=== PATIENT | female | born 1935 ===

== ENCOUNTER 2017-08-22 12:15 | Inpatient (IN) | payer MEDICARE, MEDICAID ==
[2017-08-22] MEDS ORDERED: Albuterol-Ipratrop 3 mg / 0.5 (3 ml) UD INH STA ×2 (12:44→12:51)
[2017-08-22] MEDS ORDERED: Albuterol-Ipratrop 3 mg / 0.5 (3 ml) UD ONE ×2 (12:49→13:32)
[2017-08-22 12:54] LABS: BASO % 0.4 % (0.0-2.0); EOS # 0.1 K/uL (0.0-0.7); EOS % 0.8 % (0.0-4.0); HEMOGLOBIN 12.4 g/dL (11.0-16.0); LYMPH # 1.5 K/uL (1.0-4.3); LYMPH % 17.2 % (20.0-40.0); MEAN CORPUSCULAR HEMOGLOBIN 29.2 pg (27.0-31.0); MEAN CORPUSCULAR HGB CONC 34.3 g/dL (33.0-37.0); MEAN PLATELET VOLUME 8.1 fL (7.2-11.7); MONO # 0.8 K/uL (0.0-0.8); MONO % 9.2 % (0.0-10.0); NEUT # 6.2 K/uL (1.8-7.0); NEUT % 72.4 % (50.0-75.0); NRBC % 0.1 % (0.0-2.0); RBC 4.24 Mil/uL (3.80-5.20); RED CELL DISTRIBUTION WIDTH 13.5 % (11.5-14.5); WHITE BLOOD COUNT 8.5 K/uL (4.8-10.8)
[2017-08-22 13:01] LABS: INR 2.3
[2017-08-22 13:02] LABS: PROTHROMBIN TIME 25.2 SECONDS (9.7-12.2)
--- NOTE | 2017-08-22 13:10 | RAD ---
PROCEDURE: CHEST RADIOGRAPH, 1 VIEW HISTORY: SOB COMPARISON: None available. FINDINGS: LUNGS: Suspect minor bibasilar atelectasis. There may also appears to be some linear/subsegmental atelectasis left mid lung field. PLEURA: No pneumothorax or pleural fluid seen. CARDIOVASCULAR: Cardiomegaly OSSEOUS STRUCTURES: No significant abnormalities. VISUALIZED UPPER ABDOMEN: Normal. OTHER FINDINGS: None. IMPRESSION: Suspect minor bibasilar atelectasis.There may also appears to be some linear/subsegmental atelectasis left mid lung field. Cardiomegaly.
[2017-08-22 13:16] LABS: ALB/GLOB RATIO 1.4 (1.0-2.1); ALBUMIN 4.7 g/dL (3.5-5.0); ALT/SGPT 30 U/L (9-52); AST/SGOT 56 U/L (14-36); BLOOD UREA NITROGEN 19 mg/dL (7-17); CALCIUM 9.2 mg/dl (8.6-10.4); GFR AFRICAN-AMERICAN > 60; GFR NON-AFRICAN AMERICAN > 60
[2017-08-22] MEDS ORDERED: Albuterol-Ipratrop 3 mg / 0.5 (3 ml) UD IH STA (13:18)
[2017-08-22 13:23] LABS: B-TYPE NATRIURETIC PEPTIDE 4730 pg/mL (0-900); CK-MB 5.86 ng/mL (0.0-3.38)
--- NOTE | 2017-08-22 13:50 | C.PDOC ---
Time Seen by Provider: 08/22/17 13:07 Chief Complaint (Nursing): Shortness Of Breath History Per: Patient, Other (Friend) Onset/Duration Of Symptoms: Days (few) Current Symptoms Are (Timing): Still Present Current Respiratory Medications: See Home Med List Severity: Moderate Associated Symptoms: Productive Cough Reports Recently: Treated By A Physician Additional History Per: Prior Records Past Medical History Reviewed: Historical Data, Nursing Documentation, Vital Signs Vital Signs: Last Vital Signs Temp 98.3 F 08/22/17 12:17 Pulse 87 08/22/17 12:17 Resp 18 08/22/17 12:17 BP 149/79 08/22/17 12:17 Pulse Ox 96 08/22/17 12:17 - Medical History PMH: Atrial Fibrillation, CHF, COPD, Pneumonia Other PMH: Heart valve problem Surgical History: No Surg Hx Family History: States: Unknown Family Hx - Social History Hx Tobacco Use: No Hx Alcohol Use: No Hx Substance Use: No Review Of Systems Except As Marked, All Systems Reviewed And Found Negative. Constitutional: Negative for: Fever ENT: Positive for: Nose Congestion. Negative for: Throat Pain Cardiovascular: Negative for: Chest Pain Respiratory: Positive for: Cough, Shortness of Breath, Wheezing. Negative for: Hemoptysis Gastrointestinal: Negative for: Vomiting, Abdominal Pain Musculoskeletal: Negative for: Neck Pain, Back Pain Skin: Negative for: Rash Neurological: Negative for: Weakness, Numbness Physical Exam - Physical Exam Appears: In Acute Distress (mild) Skin: Normal Color, Warm, Dry Head: Atraumatic, Normacephalic Eye(s): bilateral: PERRL Neck: Normal ROM, Supple Cardiovascular: Rhythm Irregular Respiratory: Rhonchi, Wheezing Gastrointestinal/Abdominal: Soft, No Tenderness Extremity: Normal ROM, No Pedal Edema, No Calf Tenderness Neurological/Psych: Oriented x3, Normal Motor, Normal Sensation ED Course And Treatment - Laboratory Results Result Diagrams: 08/22/17 12:50 08/22/17 12:50 Interpretation Of Abnormal: Elevated BNP ECG: Interpreted By Me, Viewed By Me ECG Rhythm: Atrial Fibrillation, Nonspecific Changes Rate From EC O2 Sat by Pulse Oximetry: 96 Pulse Ox Interpretation: Normal - Radiology CXR: Viewed By Me, Read By Radiologist CXR Interpretation: Yes: Cardiomegaly Progress - Interventions Interventions:: Observation, Oxygen - Medications Administered Inhaled nebulized: Anticholinergic, Beta-2 agonist Intravenous: Corticosteroid - Data Reviewed Data Reviewed: Lab, Diagnostic imaging, EKG, Old records - Patient Status Patient status: Partially improved - Critical Care Citical Care: Excluding Proc Time Critical Care Time: 45 minutes - Continuity of Care Discussed patient case with:: Patient, ED Nurse, PMD - Patient Plan Patient Plan: Admission, Telemetry Disposition Discussed With : Yahaira Costa Comment: She accepted pt on her service. Doctor Will See Patient In The: Hospital Counseled Patient/Family Regarding: Studies Performed, Diagnosis - Disposition Disposition: HOSPITALIZED Disposition Time: 13:52 Condition: SERIOUS - Clinical Impression Clinical Impression: COPD exacerbation, CHF (congestive heart failure)
[2017-08-22] MEDS: guaiFENesin 200 mg/10 ml Syrup UD PO SCH ×2 (18:26→21:45)
[2017-08-22] MEDS: (Novolog) Insulin Aspart, Recombinant 100 u/ml 10 ml vial SC SCH ×2 (18:27→21:30)
[2017-08-22] MEDS: Albuterol-Ipratrop 3 mg / 0.5 (3 ml) UD INH SCH (19:40)
[2017-08-22] MEDS: MethylPREDNISolone 40 mg Vial IVP SCH (21:36)
[2017-08-23] MEDS: Albuterol-Ipratrop 3 mg / 0.5 (3 ml) UD INH SCH ×4 (01:31→19:44)
[2017-08-23] MEDS: MethylPREDNISolone 40 mg Vial IVP SCH ×3 (06:27→21:58)
[2017-08-23] MEDS: (Novolog) Insulin Aspart, Recombinant 100 u/ml 10 ml vial SC SCH ×4 (08:30→21:56)
[2017-08-23] MEDS: guaiFENesin 200 mg/10 ml Syrup UD PO SCH ×4 (09:50→21:58)
--- NOTE | 2017-08-23 22:10 | CP.PCM.HP ---
History of Present Illness - History of Present Illness History of Present Illness: cc: shortness of breath x several days HPI: 82 year old woman with past medical history significant for hypertension, diabetes, COPD, presented with shortness of breath at rest. She has been having trouble breathing for the last few days and used her nebulizer 4 times a day for the last three days. She presented to our office with labored breathing and was immediately sent to the emergency room for chest xray and further evaluation. She denies any fever, chills, chest pain. PMH: Afib, HTN, DM, COPD, nonobstructive CAD, moderate-severe mitral regurgitation, pulmonary hypertension Present on Admission - Present on Admission Any Indicators Present on Admission: No Review of Systems - Constitutional Constitutional: Daytime Sleepiness - EENT Eyes: Diplopia - Respiratory Respiratory: Dyspnea, Dyspnea on Exertion, Wheezing Past Patient History - Past Medical History & Family History Past Medical History?: Yes - Past Social History Smoking Status: Never Smoked - CARDIAC Hx Cardiac Disorders: Yes Hx Atrial Fibrillation: Yes Hx Congestive Heart Failure: Yes Hx Hypercholesterolemia: Yes Hx Hypertension: Yes Other/Comment: moderate to severe mitral regurgitation, tricuspid regurgitation , pulmonary hypertension - PULMONARY Hx Chronic Obstructive Pulmonary Disease (COPD): Yes - NEUROLOGICAL Hx Neurological Disorder: No - HEENT Hx HEENT Problems: Yes Hx Cataracts: Yes (Hx galdino cataract surgery) Other/Comment: wear eyeglasses at all times - RENAL Hx Chronic Kidney Disease: No - ENDOCRINE/METABOLIC Hx Diabetes Mellitus Type 2: Yes - HEMATOLOGICAL/ONCOLOGICAL Hx Blood Disorders: Yes Other/Comment: Hx of small rectal bleeding due to xarelto ( Xarelto adjusted by doctor ) - INTEGUMENTARY Hx Dermatological Problems: No - MUSCULOSKELETAL/RHEUMATOLOGICAL Hx Falls: No - GASTROINTESTINAL Hx Gastrointestinal Disorders: Yes Hx Hemorrhoids: Yes Other/Comment: Hx. of small rectal bleeding due to xarelto (dose adjusted by MD as per pt./pt. daughter) - GENITOURINARY/GYNECOLOGICAL Hx Genitourinary Disorders: No - PSYCHIATRIC Hx Substance Use: No - SURGICAL HISTORY Hx Surgeries: Yes Hx Tubal Ligation: Yes (1967) - ANESTHESIA Hx Anesthesia: Yes Hx Anesthesia Reactions: No Hx Malignant Hyperthermia: No Has any member of the family had a problem w/ anesthesia?: No Meds Allergies/Adverse Reactions: Allergies Allergy/AdvReac Type Severity Reaction Status Date / Time No Known Allergies Allergy Verified 08/22/17 12:20 Physical Exam - Constitutional Appears: In Acute Distress - Head Exam Head Exam: ATRAUMATIC - ENT Exam ENT Exam: Normal Exam - Neck Exam Neck exam: Positive for: Normal Inspection - Respiratory Exam Respiratory Exam: Rhonchi, Wheezes - Cardiovascular Exam Cardiovascular Exam: Tachycardia, Irregular Rhythm, Systolic Murmur - GI/Abdominal Exam GI & Abdominal Exam: Normal Bowel Sounds - Back Exam Back exam: NORMAL INSPECTION - Neurological Exam Neurological exam: Oriented x3 - Psychiatric Exam Psychiatric exam: Normal Affect, Normal Mood - Skin Skin Exam: Dry, Intact, Warm Results - Vital Signs Recent Vital Signs: Last Vital Signs Temp 97.3 F L 08/23/17 15:20 Pulse 78 08/23/17 15:20 Resp 18 08/23/17 15:20 BP 126/73 08/23/17 15:20 Pulse Ox 99 08/23/17 15:20 - Labs Result Diagrams: 08/22/17 12:50 08/22/17 12:50 Labs: Laboratory Results - last 24 hr 08/23/17 08/23/17 08/23/17 06:49 11:35 16:29 POC Glucose (mg/dL) 166 H 260 H 267 H 08/23/17 21:14 POC Glucose (mg/dL) 235 H Assessment & Plan (1) COPD exacerbation Assessment and Plan: 1. COPD exacerbation: Cont DuoNebs, IV Solumedrol, Oxygen Status: Acute Decision To Admit - Pt Status Changed To: Hospital Disposition Of: Inpatient - Admit Certification Admit to Inpatient:: After my assessment, the patient will require hospitalization for at least two midnights. This is because of the severity of symptoms shown, intensity of services needed, and/or the medical risk in this patient being treated as an outpatient. - InPatient: Physician Admission Certification:: patient requires admission for acute COPD exacerbation for at least 2 midnights. - . Bed Request Type: Telemetry Admitting Physician: Abdon Costa
--- NOTE | 2017-08-23 22:23 | CP.PCM.PN ---
Subjective - Date & Time of Evaluation Date of Evaluation: 08/23/17 Time of Evaluation: 09:00 - Subjective Subjective: patient feels better today, less short of breath Objective - Vital Signs/Intake and Output Vital Signs (last 24 hours): Temp Pulse Resp BP Pulse Ox 97.3 F L 78 18 126/73 99 08/23/17 15:20 08/23/17 15:20 08/23/17 15:20 08/23/17 15:20 08/23/17 15:20 - Medications Medications: Current Medications Albuterol/Ipratropium (Duoneb 3 Mg/0.5 Mg (3 Ml) Ud) 3 ml INH RQ6 [facility] Last Admin: 08/23/17 19:44 Dose: 3 ml Furosemide (Lasix) 40 mg PO DAILY [facility] Last Admin: 08/23/17 09:49 Dose: 40 mg Guaifenesin (Robitussin) 200 mg PO QID [facility] Last Admin: 08/23/17 21:58 Dose: 200 mg Insulin Aspart (Novolog) 0 unit SC ACHS [facility] PRN Reason: Protocol Last Admin: 08/23/17 21:56 Dose: Not Given Losartan Potassium (Cozaar) 50 mg PO QPM [facility] Last Admin: 08/23/17 17:32 Dose: 50 mg Metformin HCl (Glucophage) 500 mg PO DAILY [facility] Last Admin: 08/23/17 09:49 Dose: 500 mg Methylprednisolone (Solu-Medrol) 40 mg IVP Q8 [facility] Last Admin: 08/23/17 21:58 Dose: 40 mg Nebivolol (Bystolic) 5 mg PO QPM [facility] Last Admin: 08/23/17 17:33 Dose: 5 mg Rivaroxaban (Xarelto) 15 mg PO DAILY [facility] Last Admin: 08/23/17 09:49 Dose: 15 mg Rosuvastatin Calcium (Crestor) 5 mg PO HS [facility] Last Admin: 08/23/17 22:02 Dose: 5 mg - Labs Labs: 08/22/17 12:50 08/22/17 12:50 PT 25.2 SECONDS (9.7-12.2) H 08/22/17 12:50 INR 2.3 08/22/17 12:50 APTT 50 SECONDS (21-34) H 08/22/17 12:50 - Constitutional Appears: No Acute Distress - Head Exam Head Exam: NORMAL INSPECTION - Respiratory Exam Respiratory Exam: Rhonchi - Cardiovascular Exam Cardiovascular Exam: Irregular Rhythm Assessment and Plan (1) COPD exacerbation Assessment & Plan: 1. Acute COPD exacerbation: patient is improving. Continue oxygen via NC. Cont Solumedrol, DuoNeb Status: Acute
--- NOTE | 2017-08-23 23:06 | CARD ---
APPROVED REPORT EKG Measurement Heart [id number] <Conclusion> Atrial fibrillation ST & T wave abnormality, consider inferior ischemia ST & T wave abnormality, consider anterolateral ischemia Prolonged QT Abnormal ECG
[2017-08-24] MEDS: Albuterol-Ipratrop 3 mg / 0.5 (3 ml) UD INH SCH ×5 (02:49→22:06)
[2017-08-24] MEDS: MethylPREDNISolone 40 mg Vial IVP SCH ×3 (05:37→21:51)
[2017-08-24] MEDS: (Novolog) Insulin Aspart, Recombinant 100 u/ml 10 ml vial SC SCH ×4 (08:29→21:19)
[2017-08-24] MEDS: guaiFENesin 200 mg/10 ml Syrup UD PO SCH ×4 (09:30→22:38)
--- NOTE | 2017-08-24 17:51 | CP.PCM.PN ---
Subjective - Date & Time of Evaluation Date of Evaluation: 08/24/17 Time of Evaluation: 17:47 - Subjective Subjective: Patient less dyspneic. Afebrile with better appetite. Objective - Vital Signs/Intake and Output Vital Signs (last 24 hours): Temp Pulse Resp BP Pulse Ox 98.2 F 91 H 22 112/64 98 08/24/17 16:00 08/24/17 16:00 08/24/17 16:00 08/24/17 16:00 08/24/17 16:00 Intake and Output: 08/24/17 08/24/17 06:59 18:59 Intake Total 200 Balance 200 - Medications Medications: Current Medications Albuterol/Ipratropium (Duoneb 3 Mg/0.5 Mg (3 Ml) Ud) 3 ml INH RQ6 [facility] Last Admin: 08/24/17 14:13 Dose: 3 ml Furosemide (Lasix) 40 mg PO DAILY [facility] Last Admin: 08/24/17 09:29 Dose: 40 mg Guaifenesin (Robitussin) 200 mg PO QID [facility] Last Admin: 08/24/17 13:33 Dose: 200 mg Insulin Aspart (Novolog) 0 unit SC ACHS [facility] PRN Reason: Protocol Last Admin: 08/24/17 13:05 Dose: 5 units Losartan Potassium (Cozaar) 50 mg PO QPM [facility] Last Admin: 08/23/17 17:32 Dose: 50 mg Metformin HCl (Glucophage) 500 mg PO DAILY [facility] Last Admin: 08/24/17 09:29 Dose: 500 mg Methylprednisolone (Solu-Medrol) 40 mg IVP Q8 [facility] Last Admin: 08/24/17 13:33 Dose: 40 mg Nebivolol (Bystolic) 5 mg PO QPM [facility] Last Admin: 08/23/17 17:33 Dose: 5 mg Rivaroxaban (Xarelto) 15 mg PO DAILY [facility] Last Admin: 08/24/17 09:30 Dose: 15 mg Rosuvastatin Calcium (Crestor) 5 mg PO HS [facility] Last Admin: 08/23/17 22:02 Dose: 5 mg - Labs Labs: 08/22/17 12:50 08/22/17 12:50 PT 25.2 SECONDS (9.7-12.2) H 08/22/17 12:50 INR 2.3 08/22/17 12:50 APTT 50 SECONDS (21-34) H 08/22/17 12:50 - Constitutional Appears: No Acute Distress, Chronically Ill - Head Exam Head Exam: NORMAL INSPECTION - Eye Exam Eye Exam: Normal appearance Pupil Exam: NORMAL ACCOMODATION - ENT Exam ENT Exam: Normal Exam - Neck Exam Neck Exam: Normal Inspection - Respiratory Exam Respiratory Exam: Rhonchi, Wheezes Additional comments: Less rhonchi and wheeze bilaterally. - Cardiovascular Exam Cardiovascular Exam: Irregular Rhythm, Murmur Additional comments: Systolic murmur at the apaex. - GI/Abdominal Exam GI & Abdominal Exam: Soft, Normal Bowel Sounds - Rectal Exam Rectal Exam: Deferred - Extremities Exam Extremities Exam: Normal Inspection Additional comments: Trace edema of the ankles. - Back Exam Back Exam: NORMAL INSPECTION - Neurological Exam Neurological Exam: Alert, Awake, Oriented x3 - Psychiatric Exam Psychiatric exam: Anxious - Skin Skin Exam: Dry, Normal Color, Warm Assessment and Plan (1) COPD exacerbation Status: Acute (2) Acute on chronic diastolic congestive heart failure due to valvular disease Assessment & Plan: Patient has severe mitral regurgitation, moderate tricuspid regurgitation and moderate pulmonary hypertension from a recent echo done in [place]. To continue Lasix PO. Status: Acute (3) Chronic atrial fibrillation Assessment & Plan: To continue anticoagulation Status: Acute
[2017-08-25] MEDS: Albuterol-Ipratrop 3 mg / 0.5 (3 ml) UD INH SCH ×4 (01:26→19:29)
[2017-08-25] MEDS: MethylPREDNISolone 40 mg Vial IVP SCH ×3 (06:32→21:13)
[2017-08-25 08:21] LABS: ALB/GLOB RATIO 1.6 (1.0-2.1); ALBUMIN 4.1 g/dL (3.5-5.0); ALT/SGPT 34 U/L (9-52); AST/SGOT 43 U/L (14-36); BLOOD UREA NITROGEN 27 mg/dL (7-17); GFR AFRICAN-AMERICAN > 60; GFR NON-AFRICAN AMERICAN 60
[2017-08-25 08:46] LABS: CALCIUM 9.4 mg/dl (8.6-10.4)
[2017-08-25] MEDS: (Novolog) Insulin Aspart, Recombinant 100 u/ml 10 ml vial SC SCH ×4 (08:56→21:09)
[2017-08-25] MEDS: guaiFENesin 200 mg/10 ml Syrup UD PO SCH (09:22)
[2017-08-25] MEDS: Sodium Chloride 0.9% 1,000 ML IV SCH (09:23)
--- NOTE | 2017-08-25 13:32 | CP.PCM.PN ---
Subjective - Date & Time of Evaluation Date of Evaluation: 08/25/17 Time of Evaluation: 13:30 - Subjective Subjective: Patient still with a dry cough, but no SOB. Afebrile. Serum Na+: 125 . On NS IV at 20 ml/h. Objective - Vital Signs/Intake and Output Vital Signs (last 24 hours): Temp Pulse Resp BP Pulse Ox 97.0 F L 62 20 112/77 97 08/25/17 07:20 08/25/17 07:20 08/25/17 07:20 08/25/17 09:22 08/25/17 07:20 Intake and Output: 08/25/17 08/25/17 06:59 18:59 Intake Total 600 Balance 600 - Medications Medications: Current Medications Albuterol/Ipratropium (Duoneb 3 Mg/0.5 Mg (3 Ml) Ud) 3 ml INH RQ6 [facility] Last Admin: 08/25/17 13:19 Dose: Not Given Furosemide (Lasix) 40 mg PO DAILY [facility] Last Admin: 08/25/17 09:22 Dose: 40 mg Guaifenesin (Robitussin) 200 mg PO QID [facility] Last Admin: 08/25/17 09:22 Dose: 200 mg Sodium Chloride (Sodium Chloride 0.9%) 1,000 mls @ 20 mls/hr IV .Q24H [facility] Last Admin: 08/25/17 09:23 Dose: 20 mls/hr Insulin Aspart (Novolog) 0 unit SC ACHS [facility] PRN Reason: Protocol Last Admin: 08/25/17 08:56 Dose: 1 units Losartan Potassium (Cozaar) 50 mg PO QPM [facility] Last Admin: 08/24/17 17:47 Dose: 50 mg Metformin HCl (Glucophage) 500 mg PO DAILY [facility] Last Admin: 08/25/17 09:22 Dose: 500 mg Methylprednisolone (Solu-Medrol) 40 mg IVP Q8 [facility] Last Admin: 08/25/17 06:32 Dose: 40 mg Nebivolol (Bystolic) 5 mg PO QPM [facility] Last Admin: 08/24/17 17:48 Dose: 5 mg Rivaroxaban (Xarelto) 15 mg PO DAILY [facility] Last Admin: 08/25/17 09:22 Dose: 15 mg Rosuvastatin Calcium (Crestor) 5 mg PO HS [facility] Last Admin: 08/24/17 21:49 Dose: 5 mg - Labs Labs: 08/22/17 12:50 08/25/17 07:37 PT 25.2 SECONDS (9.7-12.2) H 08/22/17 12:50 INR 2.3 08/22/17 12:50 APTT 50 SECONDS (21-34) H 08/22/17 12:50 - Constitutional Appears: No Acute Distress - Head Exam Head Exam: NORMAL INSPECTION - Eye Exam Eye Exam: Normal appearance - ENT Exam ENT Exam: Normal Exam - Neck Exam Neck Exam: Normal Inspection - Respiratory Exam Respiratory Exam: Rhonchi Additional comments: Rhonchi bilaterally. - Cardiovascular Exam Cardiovascular Exam: Irregular Rhythm - GI/Abdominal Exam GI & Abdominal Exam: Soft, Normal Bowel Sounds - Rectal Exam Rectal Exam: Deferred - Extremities Exam Extremities Exam: Normal Inspection - Back Exam Back Exam: CVA tenderness (L) - Neurological Exam Neurological Exam: Alert, Awake, Oriented x3 - Psychiatric Exam Psychiatric exam: Anxious - Skin Skin Exam: Dry, Intact, Normal Color Assessment and Plan (1) COPD exacerbation Assessment & Plan: To continue Solumedrol IV and Duoneb by nebulizer. Status: Acute (2) Acute on chronic diastolic congestive heart failure due to valvular disease Status: Acute (3) Chronic atrial fibrillation Assessment & Plan: To continue Xarelto. Status: Acute (4) Hyponatremia Assessment & Plan: To check spot urine for Na+. Status: Acute
[2017-08-26] MEDS: Albuterol-Ipratrop 3 mg / 0.5 (3 ml) UD INH SCH ×4 (01:50→20:08)
[2017-08-26] MEDS: MethylPREDNISolone 40 mg Vial IVP SCH ×3 (05:49→21:57)
[2017-08-26] MEDS: (Novolog) Insulin Aspart, Recombinant 100 u/ml 10 ml vial SC SCH ×4 (08:26→22:04)
[2017-08-26] MEDS: Promethazine DM 6.25 mg-15 mg/5 ml Syrup PO PRN ×2 (10:02→21:59)
[2017-08-26] MEDS: Sodium Chloride 0.9% 1,000 ML IV SCH (13:14)
[2017-08-26 14:58] LABS: ALB/GLOB RATIO 1.6 (1.0-2.1); ALBUMIN 4.6 g/dL (3.5-5.0); ALT/SGPT 30 U/L (9-52); AST/SGOT 38 U/L (14-36); BLOOD UREA NITROGEN 30 mg/dL (7-17); GFR AFRICAN-AMERICAN > 60; GFR NON-AFRICAN AMERICAN 60
[2017-08-26] MEDS: GlipiZIDE 2.5 mg SR Tab PO SCH ×2 (16:08→16:15)
--- NOTE | 2017-08-26 17:20 | CP.PCM.PN ---
Subjective - Date & Time of Evaluation Date of Evaluation: 08/26/17 Time of Evaluation: 17:17 - Subjective Subjective: Patient less SOB. Serum Na+ 128. Objective - Vital Signs/Intake and Output Vital Signs (last 24 hours): Temp Pulse Resp BP Pulse Ox 97.2 F L 93 H 20 117/68 94 L 08/26/17 15:40 08/26/17 15:40 08/26/17 15:40 08/26/17 15:40 08/26/17 15:40 - Medications Medications: Current Medications Albuterol/Ipratropium (Duoneb 3 Mg/0.5 Mg (3 Ml) Ud) 3 ml INH RQ6 [facility] Last Admin: 08/26/17 14:16 Dose: 3 ml Furosemide (Lasix) 40 mg PO DAILY [facility] Last Admin: 08/26/17 10:04 Dose: 40 mg Glipizide (Glucotrol Xl) 2.5 mg PO DAILY [facility] Sodium Chloride (Sodium Chloride 0.9%) 1,000 mls @ 20 mls/hr IV .Q24H [facility] Last Admin: 08/26/17 13:14 Dose: Not Given Insulin Aspart (Novolog) 0 unit SC ACHS [facility] PRN Reason: Protocol Last Admin: 08/26/17 13:35 Dose: 5 units Losartan Potassium (Cozaar) 50 mg PO QPM [facility] Last Admin: 08/25/17 17:23 Dose: 50 mg Metformin HCl (Glucophage) 500 mg PO BID [facility] Last Admin: 08/26/17 10:02 Dose: 500 mg Methylprednisolone (Solu-Medrol) 40 mg IVP Q8 [facility] Last Admin: 08/26/17 13:35 Dose: 40 mg Nebivolol (Bystolic) 5 mg PO QPM [facility] Last Admin: 08/25/17 17:24 Dose: 5 mg Promethazine HCl/Dextromethorphan (Phenergan Dm Syrup) 5 ml PO Q6H [facility] PRN Reason: Cough Last Admin: 08/26/17 10:02 Dose: 5 ml Rivaroxaban (Xarelto) 15 mg PO DAILY [facility] Last Admin: 08/26/17 10:02 Dose: 15 mg Rosuvastatin Calcium (Crestor) 5 mg PO HS [facility] Last Admin: 08/25/17 21:13 Dose: 5 mg - Labs Labs: 08/22/17 12:50 08/26/17 13:46 PT 25.2 SECONDS (9.7-12.2) H 08/22/17 12:50 INR 2.3 08/22/17 12:50 APTT 50 SECONDS (21-34) H 08/22/17 12:50 - Constitutional Appears: No Acute Distress, Chronically Ill - Head Exam Head Exam: NORMAL INSPECTION - Eye Exam Eye Exam: Normal appearance - ENT Exam ENT Exam: Normal Exam - Neck Exam Neck Exam: Normal Inspection - Respiratory Exam Additional comments: Few scattered wheeze bilaterally. - Cardiovascular Exam Cardiovascular Exam: Irregular Rhythm, Murmur - GI/Abdominal Exam GI & Abdominal Exam: Soft, Normal Bowel Sounds - Rectal Exam Rectal Exam: Deferred - Extremities Exam Extremities Exam: Normal Inspection - Back Exam Back Exam: NORMAL INSPECTION - Neurological Exam Neurological Exam: Alert, Awake - Psychiatric Exam Psychiatric exam: Anxious - Skin Skin Exam: Dry, Intact, Normal Color, Warm Assessment and Plan (1) COPD exacerbation Assessment & Plan: To continue Solumedol and Duoneb . Status: Acute (2) Acute on chronic diastolic congestive heart failure due to valvular disease Assessment & Plan: To continue Lasix. Status: Acute (3) Chronic atrial fibrillation Assessment & Plan: To continue Eliquis. Status: Acute (4) Hyponatremia Assessment & Plan: Continue IV NS. Status: Acute
[2017-08-27] MEDS: Albuterol-Ipratrop 3 mg / 0.5 (3 ml) UD INH SCH ×4 (01:43→20:01)
[2017-08-27] MEDS: MethylPREDNISolone 40 mg Vial IVP SCH ×3 (05:35→21:43)
[2017-08-27] MEDS: (Novolog) Insulin Aspart, Recombinant 100 u/ml 10 ml vial SC SCH ×4 (08:15→22:42)
[2017-08-27] MEDS: Sodium Chloride 0.9% 1,000 ML IV SCH (10:20)
[2017-08-27] MEDS: GlipiZIDE 2.5 mg SR Tab PO SCH (10:25)
[2017-08-27] MEDS: Promethazine DM 6.25 mg-15 mg/5 ml Syrup PO PRN ×2 (11:42→17:34)
--- NOTE | 2017-08-27 13:48 | RAD ---
HISTORY: COMPARISON: 08/22/2017. TECHNIQUE: Chest PA and lateral FINDINGS: LINES AND TUBES: None. LUNG AND PLEURA: The lungs are hyperinflated and there is peribronchial thickening with chronic changes in both lungs. No focal consolidation. HEART AND MEDIASTINUM: There is mild cardiomegaly. Atherosclerotic aortic arch calcifications are present. The hilar and mediastinal contours are within normal limits. SKELETAL STRUCTURES: The bony structures are within normal limits for the patient's age. VISUALIZED UPPER ABDOMEN: Normal. OTHER FINDINGS: None. IMPRESSION: No active pulmonary disease. COPD.
[2017-08-28] MEDS: Albuterol-Ipratrop 3 mg / 0.5 (3 ml) UD INH SCH ×3 (02:53→14:52)
[2017-08-28] MEDS: MethylPREDNISolone 40 mg Vial IVP SCH ×2 (06:37→13:51)
[2017-08-28 08:08] VITALS: PULSE 67
[2017-08-28 08:14] VITALS: BP 130/71; RESP 18; TEMP 98; O2SAT 96
[2017-08-28] MEDS: (Novolog) Insulin Aspart, Recombinant 100 u/ml 10 ml vial SC SCH ×3 (08:23→17:41)
[2017-08-28 08:48] LABS: BLOOD UREA NITROGEN 32 mg/dL (7-17); GFR AFRICAN-AMERICAN > 60; GFR NON-AFRICAN AMERICAN 53
[2017-08-28] MEDS: GlipiZIDE 2.5 mg SR Tab PO SCH (10:17)
[2017-08-28] MEDS: Sodium Chloride 0.9% 1,000 ML IV SCH (10:21)
--- NOTE | 2017-08-28 15:06 | PCM.HF ---
Heart Failure Core Measure - Heart Failure Ejection Fraction: 40 % or Greater SANDRA Inhibitor Prescribed: No Contraindication/Reason for not providing: ef>45 Beta-Shanika Prescribed: Bisoprolol Angiotensin II Receptor Shanika Prescribed: No Contraindication/Reason for not providing: EF>45 AnticoagulationTherapy for Atrial Fibrillation/Atrialflutter: Yes Aldosterone Antagonist Prescribed: No Contraindication/Reason for not providing: EF>45 Hydralazine Nitrate Prescribed: No Contraindication/Reason for not providing: EF>45 Implantable Cardioverter Defibrillator Therapy: No Contraindication/Reason for not providing: >45 Cardiac Resynchronization Therapy Prescribed: No Contraindication/Reason for not providing: EF>45 - Follow up Will be discharged to: Home Follow Up Date (must be within 7 days from discharge): 09/02/17 Follow Up Time: 09:00
== END 2017-08-28 17:08 | disposition home or self-care (01) | DRG 190 ==
LOC: C.ER 12:15 → C.9E 13:53 → C.6T 15:27
PROVIDERS: ADMIT Internal Medicine Cardiovascular Disease; ATTEND Internal Medicine Cardiovascular Disease
DX: J44.1 Chronic obstructive pulmonary disease with (acute) exacerbation (principal); I50.33 Acute on chronic diastolic (congestive) heart failure; I11.0 Hypertensive heart disease with heart failure; I08.1 Rheumatic disorders of both mitral and tricuspid valves; I25.10 Atherosclerotic heart disease of native coronary artery without angina pectoris; I48.91 Unspecified atrial fibrillation; E11.9 Type 2 diabetes mellitus without complications; I27.20 Pulmonary hypertension, unspecified; E78.00 Pure hypercholesterolemia, unspecified; Z98.51 Tubal ligation status